=== PATIENT | female | born 1980 | race American Indian/Alaskan Native ===

== ENCOUNTER 2017-02-10 19:15 | Emergency (ER) | payer OTHER ==
[2017-02-10] MEDS ORDERED: PEPCID IV ONE ×2 (19:45→20:03)
[2017-02-10] MEDS ORDERED: BENADRYL ONE (19:46)
[2017-02-10] MEDS ORDERED: BENADRYL IV ONE (20:03)
[2017-02-10] MEDS ORDERED: NACL 0.9% 1000 ML 1,000 ML IV ONE (20:04)
[2017-02-10 20:28] LABS: Basophils % (Auto) 1.5 % (0.0-1.8); Eosinophils % (Auto) 1.5 % (0.0-4.3); Hematocrit 38.9 % (30.3-42.9); Hemoglobin 12.1 gm/dl (10.1-14.3); Mean Corpuscular HGB Conc 31 % (30-34); Mean Corpuscular Volume 73 fl (79-97); Platelet Count 373 K/mm3 (140-440); Red Blood Count 5.35 M/mm3 (3.65-5.03); White Blood Count 8.1 K/mm3 (4.5-11.0)
[2017-02-10 20:30] LABS: Mean Corpuscular Hemoglobin 23 pg (28-32)
[2017-02-10 20:44] LABS: BUN/Creatinine Ratio 14.28; Blood Urea Nitrogen 10 mg/dL (7-17); Calcium 9.4 mg/dL (8.4-10.2); Carbon Dioxide 23 mmol/L (22-30); Chloride 98.5 mmol/L (98-107); Glucose 84 mg/dL (65-100); Sodium 139 mmol/L (137-145)
[2017-02-10 20:55] LABS: Anion Gap 22 mmol/L; Potassium 4.6 mmol/L (3.6-5.0)
--- NOTE | 2017-02-10 21:41 | Emergency Department Report ---
ED Allergic Reaction HPI - General Chief complaint: Allergic Reaction Stated complaint: ALLERGIC REACTION/HIVES Time Seen by Provider: 02/10/17 20:50 Source: patient Mode of arrival: Ambulatory Limitations: No Limitations - History of Present Illness Initial Comments: Patient is a 37-year-old femalewith past medical history who presents with hives all throat and chest. Patient states that she was eating seafood. Patient states that her symptoms started about 30 minutes after eating the seafood. She states that her symptoms are mild and that Benadryl and Pepcid made it better. She states that the symptoms have never happened before when she's eaten seafood. She denies having any pain or any shortness of breath. She arrived by friends and she was quickly given the Benadryl and Pepcid. Patient denies any other symptoms - Related Data Previous Rx's Medication Instructions Recorded Last Taken Type diphenhydrAMINE [Benadryl CAP] 25 mg PO Q6HR PRN #20 capsule 02/10/17 Unknown Rx predniSONE [Deltasone] 20 mg PO BID #10 tablet 02/10/17 Unknown Rx Allergies Allergy/AdvReac Type Severity Reaction Status Date / Time No Known Allergies Allergy Verified 02/10/17 20:24 ED Review of Systems ROS: Stated complaint: ALLERGIC REACTION/HIVES Other details as noted in HPI Constitutional: denies: chills, fever Eyes: denies: eye pain, eye discharge, vision change ENT: denies: ear pain, throat pain Respiratory: denies: cough, shortness of breath, wheezing Cardiovascular: denies: chest pain, palpitations Endocrine: no symptoms reported Gastrointestinal: denies: abdominal pain, nausea, diarrhea Genitourinary: denies: urgency, dysuria, discharge Musculoskeletal: denies: back pain, joint swelling, arthralgia Skin: as per HPI, other (highs on throat and chest). denies: rash, lesions Neurological: denies: headache, weakness, paresthesias Psychiatric: denies: anxiety, depression Hematological/Lymphatic: denies: easy bleeding, easy bruising ED Past Medical Hx - Past Medical History Previous Medical History?: No - Surgical History Past Surgical History?: No Additional Surgical History: tubaligation - Social History Smoking Status: Never Smoker Substance Use Type: None - Medications Home Medications: Home Medications Medication Instructions Recorded Confirmed Last Taken Type diphenhydrAMINE [Benadryl CAP] 25 mg PO Q6HR PRN #20 capsule 02/10/17 Unknown Rx predniSONE [Deltasone] 20 mg PO BID #10 tablet 02/10/17 Unknown Rx ED Physical Exam - General Limitations: No Limitations General appearance: alert, in no apparent distress - Head Head exam: Present: atraumatic, normocephalic - Eye Eye exam: Present: normal appearance - ENT ENT exam: Present: mucous membranes moist - Neck Neck exam: Present: normal inspection - Respiratory Respiratory exam: Present: normal lung sounds bilaterally. Absent: respiratory distress - Cardiovascular Cardiovascular Exam: Present: regular rate, normal rhythm. Absent: systolic murmur, diastolic murmur, rubs, gallop - GI/Abdominal GI/Abdominal exam: Present: soft, normal bowel sounds - Extremities Exam Extremities exam: Present: normal inspection - Back Exam Back exam: Present: normal inspection - Neurological Exam Neurological exam: Present: alert, oriented X3 - Psychiatric Psychiatric exam: Present: normal affect, normal mood - Skin Skin exam: Present: warm, dry, intact, normal color, other (disapearing urticarial rash). Absent: rash ED Course Vital Signs 02/10/17 02/10/17 02/10/17 19:24 20:10 22:13 Temperature 98.7 F Pulse Rate 70 72 Respiratory 20 16 18 Rate Blood Pressure 142/84 [Right] O2 Sat by Pulse 99 100 Oximetry ED Medical Decision Making - Lab Data Result diagrams: 02/10/17 20:10 02/10/17 20:10 Lab Results 02/10/17 02/10/17 Range/Units 20:10 20:10 WBC 8.1 (4.5-11.0) K/mm3 RBC 5.35 H (3.65-5.03) M/mm3 Hgb 12.1 (10.1-14.3) gm/dl Hct 38.9 (30.3-42.9) % MCV 73 L (79-97) fl MCH 23 L (28-32) pg MCHC 31 (30-34) % RDW 18.0 H (13.2-15.2) % Plt Count 373 (140-440) K/mm3 Lymph % (Auto) 36.5 H (13.4-35.0) % [place] % (Auto) 5.7 (0.0-7.3) % Eos % (Auto) 1.5 (0.0-4.3) % Baso % (Auto) 1.5 (0.0-1.8) % Lymph # 2.9 (1.2-5.4) K/mm3 [place] # 0.5 (0.0-0.8) K/mm3 Eos # 0.1 (0.0-0.4) K/mm3 Baso # 0.1 (0.0-0.1) K/mm3 Seg Neutrophils % 54.8 (40.0-70.0) % Seg Neutrophils # 4.4 (1.8-7.7) K/mm3 Sodium 139 (137-145) mmol/L Potassium 4.6 (3.6-5.0) mmol/L Chloride 98.5 (98-107) mmol/L Carbon Dioxide 23 (22-30) mmol/L Anion Gap 22 mmol/L BUN 10 (7-17) mg/dL Creatinine 0.7 (0.7-1.2) mg/dL Estimated GFR > 60 ml/min BUN/Creatinine Ratio 14.28 % Glucose 84 (65-100) mg/dL Calcium 9.4 (8.4-10.2) mg/dL - Medical Decision Making Chief medical diagnosis: Food allergy Differential medical diagnosis: Allergic reaction, anaphylactoid reaction Outlet CBC, CMP, Pepcid and Benadryl and I will observe patient. Patient has resolution of symptoms no shortness of breath no more hives also sent patient home with steroids and Benadryl. Critical care attestation.: If time is entered above; I have spent that time in minutes in the direct care of this critically ill patient, excluding procedure time. ED Disposition Clinical Impression: Food allergy Disposition: [id number] TO HOME OR SELFCARE Is pt being admited?: No Does the pt Need Aspirin: No Condition: Stable Instructions: Food Allergy (ED) Prescriptions: diphenhydrAMINE [Benadryl CAP] 25 mg PO Q6HR PRN #20 capsule PRN Reason: Allergy Symptoms predniSONE [Deltasone] 20 mg PO BID #10 tablet Referrals: DELPHINE CHANDLER MD [Staff Physician] - 3-5 Days
[2017-02-10 22:14] VITALS: BP 142/84
== END 2017-02-10 22:13 | disposition home or self-care (01) ==
LOC: ED 19:15
DX: T78.1XXA Other adverse food reactions, not elsewhere classified, initial encounter (principal)
CPT/HCPCS: 36415; 80048; 85025; 96361; 96374; 96375; 99283; J1200; J2930